=== PATIENT | male | born 1975 | race Caucasian/White ===

== ENCOUNTER → 2016-05-16 | Outpatient (CLI) | payer BC | END | disposition home or self-care (01) | LOC: LAB.O 10:31 | PROVIDERS: ATTEND Physician Assistant Medical | DX: I10 Essential (primary) hypertension (principal) ==

== ENCOUNTER 2019-11-13 11:46 | Emergency (ER) | payer BC ==
[2019-11-13] MEDS ORDERED: ASPIRIN (CHEWABLE) 81 MG TAB PO ONE (11:49)
[2019-11-13] MEDS ORDERED: SODIUM CHLORIDE 0.9% (FLUSH) 10 ML SYG IV PRN (11:49)
[2019-11-13] MEDS ORDERED: NITROGLYCERIN 0.4 MG 25 EA TAB SL ONE (11:49)
--- NOTE | 2019-11-13 11:49 | ED.PDOC ---
History of Present Illness - General Time Seen by Provider: 11/13/19 11:47 Source: patient - History of Present Illness Initial Comments: 43 yo male with PMH of HTN who presents with chief complaint of chest pain and right shoulder blade pain. Patient reports he has been having ongoing pain in the right shoulder blade for a couple of weeks now. 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 This morning he woke up with new onset of chest pain. Located to center of sternum, constant, "feels like a muscle strain", 1/10 severity at rest, shoots up to 7/10 severity with range of motion of the right shoulder, especially with flexion and internal rotation of the right shoulder, also worsens with palpation of the anterior chest wall, not worsened by exertion or deep breathing, no medications taken for relief. Patient reports history of hypertension and takes amlodipine daily, no other medications reported. He does report ongoing swelling in both legs, slightly worse on the left side, which is a chronic issue and largely unchanged from usual. Denies any calf pain, redness, warmth. Denies any history of blood clots. Denies any fevers, chills, cough, dyspnea, abdominal pain, nausea, vomiting, urinary symptoms. PCP is Dr. Slater. His performance improvement specialist is Dr. Jorge. Patient reports he has had cardiac stress tests, echoes, EKGs in the past but all have returned normal to his knowledge. Allergies/Adverse Reactions: Allergies NO KNOWN ALLERGY Allergy (Verified 11/17/14 22:00) Home Medications: Ambulatory Orders Amlodipine Besylate-Benazepril [Lotrel 10-20 mg] 1 cap PO DAILY #30 cap 11/17/14 Cyclobenzaprine HCl [Flexeril] 10 mg PO Q8H PRN 30 Days #30 tab 11/13/19 Tramadol HCl 50 mg PO Q6H PRN 10 Days #15 tab 11/13/19 Review of Systems - Review of Systems Review of Systems: 11/13/19 12:24 as per HPI All other Systems: Reviewed and Negative Past Medical History (General) - Patient Medical History Hx Seizures: No Hx Stroke: No Hx Dementia: No Hx Asthma: No Hx of COPD: No Hx Cardiac Disorders: No Hx Congestive Heart Failure: No Hx Pacemaker: No Hx Hypertension: Yes Hx Thyroid Disease: No Hx Diabetes: No Hx Gastroesophageal Reflux: No Hx Renal Disease: No Hx Cancer: No Hx of HIV: No Hx Hepatitis C: No Hx MRSA: No - Vaccination History Hx Tetanus, Diphtheria Vaccination: No Hx Influenza Vaccination: No Hx Pneumococcal Vaccination: No - Social History Hx Tobacco Use: Yes Hx Chewing Tobacco Use: Yes Hx Alcohol Use: No Hx Substance Use: No Hx Substance Use Treatment: No Hx Depression: No Hx Physical Abuse: No Hx Emotional Abuse: No Hx Suspected Abuse: No - Female History Patient : No Family Medical History - Family History Mother Hx Family Congestive Heart Failure: No Hx Family Hypertension: No Hx Family Stroke: No Hx Cardiac Disease: No Hx Family Diabetes: No Hx Family Cancer: No Hx Family;Other: autoimmune disorder Physical Exam - Physical Exam General Appearance: Alert, Comfortable, No apparent distress Eye Exam: bilateral normal Ears, Nose, Throat: normal ENT inspection Neck: non-tender, full range of motion, supple, normal inspection Respiratory: lungs clear, normal breath sounds, no respiratory distress, no accessory muscle use Cardiovascular/Chest: normal peripheral pulses, regular rate, rhythm, no gallop, no JVD, no murmur Peripheral Pulses: radial,right: 2+, radial,left: 2+ Gastrointestinal/Abdominal: non tender, soft, no organomegaly Back Exam: normal inspection, no CVA tenderness, no vertebral tenderness, other - moderate soft tissue/muscle ttp to right middle back w/o deformity Extremity: normal range of motion, non-tender, pedal edema - 1+ BL LE pitting edema which appears equal w/o redness/warmth/ttp. Arabella sign negative BL Neurologic: channeler runner II-XII nml as tested, no motor/sensory deficits, alert, normal mood/affect, oriented x 3 Skin Exam: normal color, warm/dry Progress - Progress Progress: 11/13/19 12:26 Chest pain -Clinically appears to be musculoskeletal in nature, especially with his history of frequent heavy lifting at work. Consider also ACS, GERD, anxiety, hypertensive urgency, pneumonia, CHF, pericarditis, other -Blood pressure initially 170s/90s on arrival but then improved to 130s/80s after several minutes with rest alone. Vitals otherwise within normal limits. Pain only reported as 1/10 severity. -Obtain cardiac work-up, place PIV, will give baby aspirin 324 mg and nitroglycerin sublingual tablet and reassess 11/13/19 13:18 -Patient remained stable, vitals remain within normal limits. He reports no change in pain with aspirin and nitroglycerin. Lab work is largely unremarkable, including normal troponin and d-dimer levels. I strongly suspect that his symptomology is musculoskeletal in nature. We will give a dose of Toradol 30 mg IV and Flexeril 10 mg p.o. along with a 1 L normal saline bolus and reassess his pain level. Repeat EKG and troponin in the ED at 2 hours. Anticipate discharge to home with close outpatient follow-up and work note allowing for rest and recovery. 11/13/19 14:31 -Repeat EKG and troponin unchanged. Patient remained stable, pain improving. Discussed diagnosis of musculoskeletal chest wall pain. Will discharge home with prescription of as needed Flexeril. Advised close follow-up with PCP. Return warnings discussed at length. Guillermo Hernandez MD Billing #[id number] 11/13/19 11:49 Sodium Chloride 0.9% (Flush) [Saline Flush Syringe] 10 ml IV PRN PRN Pulse Oximetry Assessment DAILY 11/13/19 12:00 EKG STAT 11/13/19 13:45 EKG STAT 11/14/19 09:00 Pulse Ox Daily Laboratory Results - last 24 hr 11/13/19 11/13/19 11/13/19 12:00 12:00 12:00 WBC 6.9 RBC 5.37 Hgb 15.9 Hct 45.2 MCV 84.3 MCH 29.7 MCHC 35.3 RDW 13.6 Plt Count 213 MPV 7.1 L Absolute Neuts (auto) 3.90 Absolute Lymphs (auto) 2.40 Absolute Monos (auto) 0.40 Absolute Eos (auto) 0.20 Absolute Basos (auto) 0.10 Neutrophils % 56.9 Lymphocytes % 34.5 Monocytes % 5.2 Eosinophils % 2.2 Basophils % 1.2 D-Dimer, Quantitative Sodium 135 Potassium 4.1 Chloride 99 L Carbon Dioxide 27 Anion Gap 13.1 BUN 19 H Creatinine 0.82 BUN/Creatinine Ratio 23.2 H Random Glucose 200 H Serum Osmolality 278.0 Calcium 8.8 Total Bilirubin 0.6 AST 22 ALT 38 Alkaline Phosphatase 71 Troponin I < 0.02 B-Natriuretic Peptide < 15.0 Serum Total Protein 7.4 Albumin 4.2 Globulin 3.2 Albumin/Globulin Ratio 1.3 11/13/19 11/13/19 12:00 13:45 WBC RBC Hgb Hct MCV MCH MCHC RDW Plt Count MPV Absolute Neuts (auto) Absolute Lymphs (auto) Absolute Monos (auto) Absolute Eos (auto) Absolute Basos (auto) Neutrophils % Lymphocytes % Monocytes % Eosinophils % Basophils % D-Dimer, Quantitative < 131.0 L Sodium Potassium Chloride Carbon Dioxide Anion Gap BUN Creatinine BUN/Creatinine Ratio Random Glucose Serum Osmolality Calcium Total Bilirubin AST ALT Alkaline Phosphatase Troponin I < 0.02 B-Natriuretic Peptide Serum Total Protein Albumin Globulin Albumin/Globulin Ratio - EKG/XRAY/CT EKG: Sinus - Normal sinus rhythm, heart rate 75, no ST elevations or Q waves noted, axis normal, intervals normal, no prior EKG for comparison. XRAY: chest - No acute processes per my read Departure - Departure Clinical Impression: Musculoskeletal chest pain Time of Disposition: 14:30 Disposition: Discharge to Home or Self Care Condition: Good Departure Forms: ED Discharge - Work Release Diet: resume usual diet Activity: other - limited activity as per work release form Referrals: Elizabeth Slater MD [Primary Care Provider] - 1-2 Weeks Prescriptions: Cyclobenzaprine HCl [Flexeril] 10 mg PO Q8H PRN 30 Days #30 tab PRN Reason: Muscle Spasms Tramadol HCl 50 mg PO Q6H PRN 10 Days #15 tab PRN Reason: Pain Home Medications: Ambulatory Orders Amlodipine Besylate-Benazepril [Lotrel 10-20 mg] 1 cap PO DAILY #30 cap 11/17/14 Cyclobenzaprine HCl [Flexeril] 10 mg PO Q8H PRN 30 Days #30 tab 11/13/19 Tramadol HCl 50 mg PO Q6H PRN 10 Days #15 tab 11/13/19 Additional Instructions: I advised that he limit physical activity and lifting as per your work note. Continue taking [id number] medications to help reduce pain and inflammation such as Tylenol 650 mg every 6 hours as needed and ibuprofen 600 mg every 6 hours as needed. You may take the Flexeril as needed for muscle spasms and tramadol as needed for breakthrough pain. Do not drive or operate machinery while taking this medication as it may make you drowsy. Return to the ED if you develop any concerning symptoms such as worsening or changing chest pain, shortness of breath, fevers, severely elevated blood pressures more than 180 systolic or 110 diastolic, etc. Follow-up with your primary care physician is recommended for repeat evaluation in the next 1 to 2 weeks. Your blood glucose level was noted to be elevated this visit and I recommend that you be screened in the clinic for diabetes as well as have repeat evaluation of your blood pressure.
--- NOTE | 2019-11-13 12:19 | RAD ---
EXAM: Chest,1 View CLINICAL INDICATION: Chest tightness COMPARISON: 11/17/2015 FINDINGS: A single view of the chest was obtained. The heart size is normal. The pulmonary vascularity is unremarkable. The lungs are clear. There is no consolidation, infiltrate, pleural effusion, or pneumothorax. IMPRESSION: No evidence of active pulmonary disease. Electronically signed by: Jim Downs MD 11/13/2019 12:17 PM CDT
[2019-11-13] MEDS ORDERED: CYCLOBENZAPRINE HCL 10 MG TAB PO ONE (13:16)
[2019-11-13] MEDS ORDERED: KETOROLAC TROMETHAMINE INJ 30 MG/ML VIAL IV ONE (13:16)
[2019-11-13] MEDS ORDERED: SODIUM CHLORIDE 0.9% 1000ML 1,000 ML IVS ONE (13:17)
[2019-11-13 15:14] VITALS: BP 118/62; TEMP 98.1; O2SAT 96
== END 2019-11-13 15:14 | disposition home or self-care (01) ==
LOC: ER 11:46
DX: R07.89 Other chest pain (principal); M25.511 Pain in right shoulder; I10 Essential (primary) hypertension; Z87.891 Personal history of nicotine dependence
CPT/HCPCS: 36415; 71045; 80053; 83880; 84484; 85025; 85379; 93005; 94760; A4216; J1885; J7030